=== PATIENT | male | born 1980 | race Caucasian/White ===

== ENCOUNTER 2016-11-18 11:57 | Emergency (ER) | payer OTHER ==
[2016-11-18] MEDS ORDERED: MORPHINE SULFATE 5 MG/ML PFS IVP ONE (12:37)
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
[2016-11-18] MEDS: 0.9 % SODIUM CHLORIDE 1,000 ML BAG IV ONE (13:40)
[2016-11-18 13:48] LABS: HEMATOCRIT 46.1 % (42.0-52.0); HEMOGLOBIN 16.6 gm/dl (14.0-18.0); MEAN CORPUSCULAR HEMOGLOBIN 29.2 pg (27-33); MEAN PLATELET VOLUME 11.3 fl (7.4-10.4); PLATELET COUNT 214 K/uL (130-400); RED BLOOD COUNT 5.69 M/uL (4.40-5.70); RED CELL DISTRIBUTION WIDTH 12.6 % (11.5-14.5); WHITE BLOOD COUNT W/O DIFF 9.7 K/uL (4.2-12.2)
[2016-11-18 14:00] LABS: INR 0.94; PARTIAL THROMBOPLASTIN TIME 27.5 SECONDS (24.5-39.1); PROTHROMBIN TIME (PATIENT) 10.6 SECONDS (9.5-12.1)
[2016-11-18 14:04] LABS: LACTIC ACID 1.5 mmol/L (0.7-2.1)
[2016-11-18 14:10] LABS: PLATELET ESTIMATE NORMAL (NORMAL)
[2016-11-18 14:14] LABS: BLOOD UREA NITROGEN 17 mg/dL (9-20); CREATININE 0.9 mg/dL (0.66-1.25); EST GLOMERULAR FILTRATION RATE > 60 ml/min; GLUCOSE,RANDOM 98 mg/dL (70-110)
[2016-11-18 14:15] LABS: ALB/GLOB RATIO 1.8 (1.1-1.8); ALBUMIN 5.1 gm/dL (3.5-5.0); ALKALINE PHOSPHATASE 74 U/L (38-126); ALT/SGPT 78 U/L (21-72); AST/SGOT 32 U/L (17-59); TOTAL PROTEIN 7.9 gm/dL (6.3-8.2)
[2016-11-18 14:24] LABS: URINE APPEARANCE CLEAR; URINE BILIRUBIN NEGATIVE (NEGATIVE); URINE BLOOD NEGATIVE (NEGATIVE); URINE COLOR YELLOW; URINE GLUCOSE (UA) NEGATIVE (NEGATIVE); URINE KETONE NEGATIVE (NEGATIVE); URINE LEUKOCYTE ESTERASE NEGATIVE (NEGATIVE); URINE NITRITE NEGATIVE (NEGATIVE); URINE PROTEIN NEGATIVE (NEGATIVE); URINE UROBILINOGEN 0.2 E.U./dL (0.20 - 1.00)
[2016-11-18] MEDS: IBUPROFEN 600 MG TABLET PO ONE (15:39)
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
== END 2016-11-18 16:46 | disposition home or self-care (01) ==
LOC: ER 11:57
DX: S20.212A Contusion of left front wall of thorax, initial encounter (principal); S30.1XXA Contusion of abdominal wall, initial encounter; S10.93XA Contusion of unspecified part of neck, initial encounter; S00.93XA Contusion of unspecified part of head, initial encounter; M25.512 Pain in left shoulder; V43.54XA Car driver injured in collision with van in traffic accident, initial encounter; Y92.410 Unspecified street and highway as the place of occurrence of the external cause
CPT/HCPCS: 99284 ×2; 83605; 85730; 85610; 80053; 81003; 85027; 72125; 71260; 70450; 74177; Q9967; J7030